=== PATIENT | male | born 1980 | race African-American/Black ===

== ENCOUNTER 2016-10-19 11:54 | Emergency (ER) | payer MEDICAID, OTHER ==
[~2016-10-19] VITALS: Ht 162.6 cm; Wt 77.1 kg
[~2016-10-19 11:54] MED LIST: ALBUTEROL SULF8.5 GM INH; AZITHROMYCIN250 MG ORAL; NKM; NORCO 5-325 TA1 EACH ORAL
[2016-10-19 12:30] VITALS: BP 130/84
[2016-10-19] MEDS ORDERED: CYCLOBENZAPRINE10 MG ORAL (12:44)
[2016-10-19] MEDS ORDERED: IBUPROFEN600 MG ORAL (12:44)
[2016-10-19] MEDS ORDERED: Methocarbamol 750mg tab ORAL ONE (12:45)
[2016-10-19 13:20] VITALS: BP 130/84
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
== END 2016-10-19 13:20 | disposition home or self-care (01) ==
LOC: EMR 12:35
DX: M54.5 Low back pain (principal); G89.29 Other chronic pain
CPT/HCPCS: 99284